=== PATIENT | female | born 2000 | race Caucasian/White ===

== ENCOUNTER 2019-05-17 16:53 | Outpatient (CLI) | payer OTHER, SELFPAY ==
[2019-05-17 17:18] LABS: Abs Immature Grans 0.02 k/cumm (0.0-0.09); Absolute Basophil Count 0.02 k/cumm (0.0-0.2); Absolute Eosinophil Count 0.08 k/cumm (0.0-0.7); Absolute Lymphocyte Count 2.68 k/cumm (1.2-3.4); Absolute Monocyte Count 0.79 k/cumm (0.11-0.7); Basophils % 0.2; Eosinophils % 0.7; HCT 37.2 % (36.0-46.0); HGB 12.5 g/dL (12.0-15.5); Immature Grans % 0.2; Lymphocytes % 25.1; Mean Corp. HGB Concentration 33.6 g/dL (32.0-36.0); Mean Corpuscular Hemoglobin 30.4 pg (27.0-33.0); Mean Corpuscular Volume 90.5 fL (80-95); Mean Platelet Volume 8.9 fL (8.0-11.0); Monocytes % 7.4; Neutrophils % 66.4; Platelet Count 364 x1000/uL (130-400); RBC 4.11 m/cumm (4.00-5.20); RBC Distribution Width 12.5 % (11.7-14.6); White Blood Cell Count 10.69 k/cumm (4.4-10.8)
[2019-05-17 18:44] LABS: ALT 15 U/L (12-78); AST 7 U/L (15-37); Alkaline Phosphatase 72 U/L (46-116); Anion Gap 12.9 mmol/L (3-11); BUN 15 mg/dL (7-18); Bilirubin, Total 0.2 mg/dL (0.2-1.0); C-Reactive Protein 1.51 mg/dL (0.0-0.3); CO2 22.1 mmol/L (21.0-32.0); Calcium 9.2 mg/dL (8.5-10.1); Chloride 105 mmol/L (98-107); Glucose 91 mg/dL (70-100); Potassium 4.1 mmol/L (3.5-5.1); Sodium 140 mmol/L (136-145); Total Protein 7.7 g/dL (6.4-8.2)
[2019-05-21 11:44] LABS: Lyme Ab w Rflx to Lyme Confirm Negative
[2019-05-21 19:31] LABS: Anaplasma phagocytophilum Negative (Negative); B. miyamotoi PCR Negative (Negative); Babesia divergens/MO-1 Negative (Negative); Babesia duncani Negative (Negative); Babesia microti Negative (Negative); Ehrlichia chaffeensis Negative (Negative); Ehrlichia ewingii/canis Negative (Negative); Ehrlichia muris eauclairensis Negative (Negative)
== END 2019-05-17 17:13 ==
PROVIDERS: Pediatrics; PCP Pediatrics; Visit Provider Pediatrics
DX: L53.2 Erythema marginatum (principal)
CPT/HCPCS: 36415; 80053; 87798; 85025; 86140; 86618

== ENCOUNTER 2022-04-13 17:04 | Outpatient (REF) | payer OTHER, SELFPAY ==
--- NOTE | 2022-04-13 14:20 | PAPFT_PTH ---
PATIENT: Dyan Stein LOC: [facility] U#:[id number] AGE/SX: 21/ ROOM: RE04/13/[address]: Meryl Liu : 2000 BED: DIS: 04/13/2022 SPEC #: [id number] RECD: 04/13/22 18:27 STATUS: CHLOÉ RECherie #: [id number] MARSHA: 04/13/22 14:[address]: Meryl Liu DEPT: [facility] Cytology RECD BY: Naima Thomas ENTERED: 04/13/22 18:27 SP TYPE: PAPFT OT DR: Unknown,Unknown Tissues: 1 - CX/ENDOCX FOR PAP SMEARS Procedures: PAP THIN PREP/[facility] Screening Comments: [id number]
== END 2022-04-13 17:05 | disposition home or self-care (01) ==
LOC: NCHCN 17:04
PROVIDERS: Visit Provider Nurse Practitioner Family
DX: Z00.00 Encounter for general adult medical examination without abnormal findings (principal); Z12.4 Encounter for screening for malignant neoplasm of cervix
CPT/HCPCS: 88142

== ENCOUNTER 2025-04-18 11:08 | Outpatient (REF) | payer OTHER, SELFPAY ==
[2025-04-18 15:28] LABS: Anion Gap 12.1 mmol/L (3-11); CO2 23.9 mmol/L (21.0-32.0); Calcium 9.4 mg/dL (8.5-10.1); Chloride 104 mmol/L (98-107); Estimated GFR 127.67 (mL/min/1.73m2); Glucose 104 mg/dL (74-106); Potassium 3.9 mmol/L (3.5-5.1); Sodium 140 mmol/L (136-145)
[2025-04-18 16:00] LABS: BUN 6 mg/dL (7-18)
== END 2025-04-18 11:09 | disposition home or self-care (01) ==
LOC: NCHCN 11:08
PROVIDERS: Visit Provider Nurse Practitioner Family
DX: Z00.00 Encounter for general adult medical examination without abnormal findings (principal)
CPT/HCPCS: 80048

== ENCOUNTER 2025-05-07 09:33 | Outpatient (REF) | payer OTHER, SELFPAY ==
--- NOTE | 2025-05-07 09:20 | PAPFT_PTH ---
PATIENT: Dyan Stein LOC: [facility] U#:[id number] AGE/SX: 24/F ROOM: RE05/07/[address]: Nicole Dinh NP : 2000 BED: DIS: 05/07/2025 SPEC #: [id number] RECD: 05/07/25 13:07 STATUS: CHLOÉ RECherie #: [id number] MARSHA: 05/07/25 09:[address]: Nicole Dinh NP DEPT: [facility] Cytology RECD BY: Naima Thomas ENTERED: 05/07/25 13:08 SP TYPE: PAPFT OTHR DR: Unknown,Unknown Tissues: 1 - CX/ENDOCX FOR PAP SMEARS Procedures: PAP THIN PREP/[facility] Screening Comments: [id number]
== END 2025-05-07 09:34 | disposition home or self-care (01) ==
LOC: LBN 09:33
PROVIDERS: Visit Provider Nurse Practitioner Women's Health
DX: Z12.4 Encounter for screening for malignant neoplasm of cervix (principal)
CPT/HCPCS: 88142